=== PATIENT | female | born 1975 | race American Indian/Alaskan Native ===

== ENCOUNTER 2017-12-24 10:50 | Emergency (ER) | payer OTHER ==
[2017-12-24 10:55] VITALS: BMI 42.4
[2017-12-24 10:57] VITALS: BP 106/69; PULSE 56; RESP 20; TEMP 97; O2SAT 100
--- NOTE | 2017-12-24 11:29 | ED PDOC ---
HPI: Dental Pain/Injury Time Seen by Provider: 12/24/17 11:13 Chief Complaint (Nursing): Dental Pain Chief Complaint (Provider): Pain to gum History Per: Patient History/Exam Limitations: no limitations Onset/Duration Of Symptoms: Days (24 hrs) Additional Complaint(s): Pt. with pain to the left lower gum. Woke up with swelling on the lower face in that left area. No numbness, tingles, weakness. Tolerates po. No sore throat. No dyspnea. No headaches. Has a dentist and has to get the left lower molar pulled. Past Medical History Reviewed: Nursing Documentation, Vital Signs Vital Signs: Last Vital Signs Temp 97 F L 12/24/17 10:55 Pulse 56 L 12/24/17 10:55 Resp 20 12/24/17 10:55 BP 106/69 12/24/17 10:55 Pulse Ox 100 12/24/17 10:55 - Medical History PMH: No Chronic Diseases - Surgical History Surgical History: No Surg Hx - Family History Family History: States: Unknown Family Hx - Home Medications Home Medications: Ambulatory Orders Medication Instructions Recorded Clindamycin [Cleocin] 300 mg PO QID 7 Days cap 12/24/17 Ibuprofen [Motrin] 600 mg PO TID 7 Days tab 12/24/17 - Allergies Allergies/Adverse Reactions: Allergies Allergy/AdvReac Type Severity Reaction Status Date / Time No Known Allergies Allergy Verified 12/24/17 11:08 Review of Systems Constitutional: Negative for: Weakness ENT: Positive for: Mouth Pain. Negative for: Nose Discharge, Mouth Swelling, Throat Pain Cardiovascular: Negative for: Chest Pain Respiratory: Negative for: Shortness of Breath Gastrointestinal: Negative for: Nausea, Vomiting, Abdominal Pain Musculoskeletal: Negative for: Neck Pain Skin: Negative for: Rash Neurological: Negative for: Weakness, Headache Physical Exam - Reviewed Nursing Documentation Reviewed: Yes Vital Signs Reviewed: Yes - Physical Exam Appears: Positive for: Well, Non-toxic, No Acute Distress Head Exam: Positive for: ATRAUMATIC, NORMAL INSPECTION, NORMOCEPHALIC Skin: Positive for: Normal Color, Warm, DRY Eye Exam: Positive for: EOMI, Normal appearance, PERRL ENT: Positive for: Other (left last molar intact; gum lateral with mild tender; no erythema; skin swelling on lower ) Neck: Positive for: Normal, Painless ROM Cardiovascular/Chest: Positive for: Regular Rate, Rhythm Respiratory: Positive for: CNT, Normal Breath Sounds Back: Positive for: Normal Inspection. Negative for: L CVA Tenderness, R CVA Tenderness Extremity: Positive for: Normal ROM. Negative for: Tenderness Neurologic/Psych: Positive for: Alert, Oriented - ECG O2 Sat by Pulse Oximetry: 100 Pulse Ox Interpretation: Normal - Progress ED Course And Treament: 1147: Stable. AAOx3. Pain controlled. FU with her dentist. He was closed on the weekend. Disposition - Clinical Impression Clinical Impression: Dental caries - Patient ED Disposition Is Patient to be Admitted: No Counseled Patient/Family Regarding: Diagnosis, Need For Followup, Rx Given - Disposition Referrals: [facility] [Outside] - 12/26/17 Disposition: Routine/Home Disposition Time: 11:48 Condition: STABLE Additional Instructions: Return if not better in 3 days. See your dentist Tuesday without fail. Prescriptions: Clindamycin [Cleocin] 300 mg PO QID 7 Days cap Ibuprofen [Motrin] 600 mg PO TID 7 Days tab Instructions: Dental Pain (DC) Forms: [facility] (Turkish), [facility] ED School/Work Excuse
== END 2017-12-24 12:08 | disposition home or self-care (01) ==
LOC: H.ER 10:50
DX: K02.9 Dental caries, unspecified (principal)